=== PATIENT | male | born 1960 | race Caucasian/White ===

== ENCOUNTER 2017-05-25 00:35 | Emergency (ER) | payer OTHER ==
[~2017-05-25] VITALS: Ht 162.6 cm; Wt 95.3 kg
[~2017-05-25 00:35] MED LIST: ASPI-612 PO; ATOR10TA PO; Acetaminophen PO; CARV3.122 PO; Carisoprodol PO; HYDR-3326 PO; MAGN400O6 PO; PANT40TA2 PO; RXENO XX
--- NOTE | 2017-05-25 00:50 | NUR ---
PT WALKED INTO ER WITH ABSCESSES ON NECK AND BOTH UNDER ARMS.PT STATES NECK ABSCESS HAS AN ODOR... PT IS ALERT, ORIENTED X 3, NO RESP DISTRESS NOTED OR REPORTED UPON ASSESSMENT... MD AT BEDSIDE...
--- NOTE | 2017-05-25 01:10 | NUR ---
Patient discharged to home in stable conditon. Written and verbal after care instructions given. Patient verbalizes understanding of instructions. PT WALKED OUT OF ER UNASSISTED...
[2017-05-25 01:16] VITALS: BP 123/80
== END 2017-05-25 01:17 | disposition home or self-care (01) ==
LOC: ER 00:35
DX: L02.11 Cutaneous abscess of neck (principal); L02.412 Cutaneous abscess of left axilla; L02.411 Cutaneous abscess of right axilla; I10 Essential (primary) hypertension; F17.200 Nicotine dependence, unspecified, uncomplicated; I25.2 Old myocardial infarction; F20.9 Schizophrenia, unspecified; Z87.01 Personal history of pneumonia (recurrent); Z79.82 Long term (current) use of aspirin
CPT/HCPCS: A4663

== ENCOUNTER 2017-07-29 07:06 | Emergency (ER) | payer OTHER ==
[~2017-07-29] VITALS: Ht 162.6 cm; Wt 102.1 kg
--- NOTE | 2017-07-29 07:56 | NUR ---
Pt evaluated by MD in room 4A for c/o "something in my throat feels swollen", reports having coffee at [employer] and having a new sweetner "I think I have an allergic reaction". Pt presents with belching, bending forward makes pt breath easier, while talking has to take a break due to gagging. On inspection noted swelling of uvula in the back of pt's throat.
--- NOTE | 2017-07-29 08:14 | NUR ---
Pt receiving breathing treatment at this time.
--- NOTE | 2017-07-29 08:19 | NUR ---
Pt reports feeling better after the treatment, feels some soreness in this throat.
--- NOTE | 2017-07-29 10:52 | NUR ---
Patient discharged home in stable conditon. Written and verbal after care instructions given. Patient verbalizes understanding of instructions.
[2017-07-29 10:53] VITALS: BP 153/93
== END 2017-07-29 10:54 | disposition home or self-care (01) ==
LOC: ER 07:06
DX: K12.2 Cellulitis and abscess of mouth (principal); I10 Essential (primary) hypertension; F20.9 Schizophrenia, unspecified; E78.5 Hyperlipidemia, unspecified; J44.9 Chronic obstructive pulmonary disease, unspecified; G89.29 Other chronic pain; M54.5 Low back pain; Z79.82 Long term (current) use of aspirin; F17.210 Nicotine dependence, cigarettes, uncomplicated; I25.10 Atherosclerotic heart disease of native coronary artery without angina pectoris
CPT/HCPCS: 70360; 93005; 94640; 96374; 96375; 99284; A4663; J1200; J2930; J3490

== ENCOUNTER 2018-04-28 12:50 | Emergency (ER) | payer OTHER ==
[~2018-04-28] VITALS: Ht 162.6 cm; Wt 100.7 kg
--- NOTE | 2018-04-28 13:35 | NUR ---
MSE DONE BY DR BURGER ROOM 02A.
[2018-04-28] MEDS ORDERED: OXYCODONE/APAP 5-325 MG TABLET PO ONE (13:43)
[2018-04-28] MEDS ORDERED: OXYCODONE/APAP 5-325 MG TABLET ONE (13:50)
--- NOTE | 2018-04-28 13:58 | NUR ---
Patient discharged to home in stable conditon. Written and verbal after care instructions given. Patient verbalizes understanding of instructions.
[2018-04-28 13:59] VITALS: BP 137/68
== END 2018-04-28 14:01 | disposition home or self-care (01) ==
LOC: ER 12:50
DX: G89.29 Other chronic pain (principal); I10 Essential (primary) hypertension; M54.9 Dorsalgia, unspecified; M25.519 Pain in unspecified shoulder; Z79.891 Long term (current) use of opiate analgesic; Z79.899 Other long term (current) drug therapy; Z79.82 Long term (current) use of aspirin
CPT/HCPCS: 99283; A4663

== ENCOUNTER 2019-12-23 10:29 | Emergency (ER) | payer MEDICAID, OTHER ==
[~2019-12-23] VITALS: Ht 165.1 cm; Wt 85.7 kg
[2019-12-23 10:59] VITALS: BP 129/81
--- NOTE | 2019-12-23 10:59 | NUR ---
Patient discharged to home in stable conditon. Written and verbal after care instructions given. Patient verbalizes understanding of instructions. Patient ambulated with stable gait.
== END 2019-12-23 11:00 | disposition home or self-care (01) ==
LOC: ER 10:29
DX: M25.511 Pain in right shoulder (principal); I10 Essential (primary) hypertension; I25.2 Old myocardial infarction; F17.200 Nicotine dependence, unspecified, uncomplicated; Z76.0 Encounter for issue of repeat prescription; Z79.899 Other long term (current) drug therapy; Z79.82 Long term (current) use of aspirin
CPT/HCPCS: A4663

== ENCOUNTER 2020-01-10 09:21 | Emergency (ER) | payer MEDICAID ==
[~2020-01-10] VITALS: Ht 162.6 cm; Wt 85.7 kg
--- NOTE | 2020-01-10 09:55 | NUR ---
PATIENT WAS SEEN BY . DC AND F/U INSTRUCTIONS GIVEN AND EXPLAINED TO PATIENT WHO STATES HE UNDERSTANDS ALL INSTRUCTIONS.
== END 2020-01-10 09:57 | disposition home or self-care (01) ==
LOC: ER 09:21
DX: Z76.0 Encounter for issue of repeat prescription (principal); G43.909 Migraine, unspecified, not intractable, without status migrainosus; F17.200 Nicotine dependence, unspecified, uncomplicated; Z79.899 Other long term (current) drug therapy; Z79.82 Long term (current) use of aspirin; Z60.2 Problems related to living alone
CPT/HCPCS: A4663

== ENCOUNTER 2020-08-01 05:24 | Emergency (ER) | payer BC, MEDICAID, OTHER ==
[~2020-08-01] VITALS: Ht 162.6 cm; Wt 83.9 kg
[2020-08-01] MEDS ORDERED: METH-33 PO (05:59)
[2020-08-01] MEDS ORDERED: GABA-534 PO (05:59)
--- NOTE | 2020-08-01 06:34 | NUR ---
Patient discharged to home in stable condition. Written and verbal after care instructions given. Patient verbalizes understanding of instructions. Stressed follow up or return to ER for worsening s/s.
[2020-08-01 06:35] VITALS: BP 158/105
== END 2020-08-01 06:42 | disposition home or self-care (01) ==
LOC: ER 05:28
DX: S60.221A Contusion of right hand, initial encounter (principal); V43.52XA Car driver injured in collision with other type car in traffic accident, initial encounter; Y92.89 Other specified places as the place of occurrence of the external cause; M25.511 Pain in right shoulder; F17.200 Nicotine dependence, unspecified, uncomplicated; Z79.899 Other long term (current) drug therapy; F20.9 Schizophrenia, unspecified
CPT/HCPCS: 72100; 73030; 73130; A4663

== ENCOUNTER 2021-08-21 08:20 | Emergency (ER) | payer OTHER ==
[~2021-08-21] VITALS: Ht 162.6 cm; Wt 90.7 kg
[~2021-08-21 08:20] MED LIST changes: -ASPI-612 PO; -ATOR10TA PO; -Acetaminophen PO; -CARV3.122 PO; -Carisoprodol PO; +GABA-534 PO; -HYDR-3326 PO; -MAGN400O6 PO; +METH-33 PO; -PANT40TA2 PO; -RXENO XX
--- NOTE | 2021-08-21 08:30 | NUR ---
at bedside for MSE. Pt states he has not taken any of his regular prescribed medications for aobut four months because he ran out.
[2021-08-21] MEDS: ASPIRIN 81 MG TAB.CHEW PO ONE (08:35)
--- NOTE | 2021-08-21 08:35 | NUR ---
Patient is AOx4, denies chest pains@the moment. Patient said his chest pains usually come with exertion, his skin is warm & dry. Patient is expressing desire to leave the hospital and not be admitted. MD is aware.
[2021-08-21] MEDS ORDERED: ASPIRIN 81 MG TAB.CHEW ONE (08:40)
[2021-08-21 08:48] LABS: HEMATOCRIT 40.2 % (36.7-47.1); MEAN CORPUSCULAR HEMOGLOBIN 30.4 uug (23.8-33.4); MEAN CORPUSCULAR VOLUME 88.2 fL (73.0-96.2); PLATELET COUNT (AUTO) 236 K/uL (152-348)
[2021-08-21 08:55] LABS: CREATININE 0.7 mg/dL (0.6-1.3); POTASSIUM 3.5 mmol/L (3.5-5.1)
[2021-08-21 09:01] LABS: BILIRUBIN,DIRECT 0.2 mg/dL (0.0-0.2); BILIRUBIN,TOTAL 0.6 mg/dL (0.2-1.0); TOTAL PROTEIN, SERUM 7.8 g/dL (6.4-8.2)
[2021-08-21] MEDS ORDERED: ARIP10TA9 PO (09:23)
[2021-08-21] MEDS ORDERED: OLAN10TA3 PO (09:23)
[2021-08-21] MEDS ORDERED: ASPI81TA31 PO (09:23)
--- NOTE | 2021-08-21 09:31 | NUR ---
Patient did not wish to proceed with medical care recommended by Dr. Galindo. Patient was given information related to possible complications, up to and including , which could occur as a result of leaving the hospital at this time. Patient verbalized understanding of risks involved due to leaving against medical advice. Patient signed the AMA form. Copies of all the tests' results were given as well.
== END 2021-08-21 09:31 | disposition left against medical advice (07) ==
LOC: ER 08:20
DX: I21.4 Non-ST elevation (NSTEMI) myocardial infarction (principal); Z53.29 Procedure and treatment not carried out because of patient's decision for other reasons; Z91.14 Patient's other noncompliance with medication regimen; I25.2 Old myocardial infarction; F17.210 Nicotine dependence, cigarettes, uncomplicated; I11.9 Hypertensive heart disease without heart failure; F20.9 Schizophrenia, unspecified; Z95.5 Presence of coronary angioplasty implant and graft
CPT/HCPCS: 36415; 70030-TC; 71045; 85025; 93005; A4663

== ENCOUNTER 2021-10-04 07:15 | Inpatient (IN) | payer OTHER ==
[~2021-10-04] VITALS: Ht 162.6 cm; Wt 87.1 kg
[~2021-10-04 07:15] MED LIST changes: +ARIP10TA9 PO; +ASPI81TA31 PO; -GABA-534 PO; -METH-33 PO; +OLAN10TA3 PO
[2021-10-04] MEDS ORDERED: CARI350T PO (07:43)
--- NOTE | 2021-10-04 07:50 | NUR ---
PT GAVE THE NAME OF THE MEDS THAT HE ETAKES. PT ALSO MENTIONED THAT WAS TOLD THAT HE NEEDS TO BE ON ELIQUIS, BUT IT IS STILL NOT ARRANGED FOR HIM TO GET IT.
[2021-10-04 07:51] LABS: *BILIRUBIN,URIN NEGATIVE (NEGATIVE); *BLOOD, URINE NEGATIVE (NEGATIVE); *CLARITY,URINE CLEAR (CLEAR); *COLOR,URINE LIGHT YELLOW (YELLOW); *KETONES,URINE NEGATIVE (NEGATIVE); *UROBILINOGEN,URINE 0.2 E.U./dl (NORMAL); LEUKOCYTE ESTERASE ,URINE NEGATIVE (NEGATIVE); NITRITE, URINE NEGATIVE (NEGATIVE); UGLUCOSE NEGATIVE (NEGATIVE)
[2021-10-04 08:00] LABS: HEMATOCRIT 28.5 % (36.7-47.1); MEAN CORPUSCULAR HEMOGLOBIN 28.7 uug (23.8-33.4); MEAN CORPUSCULAR VOLUME 87.4 fL (73.0-96.2); PLATELET COUNT (AUTO) 528 K/uL (152-348)
--- NOTE | 2021-10-04 08:00 | NUR ---
pt wake and alert respiration spont c/o swallen on both lege hx open heart surger 22 day ago incision clean and dry and normal healing prosscess
[2021-10-04 08:14] LABS: BILIRUBIN,DIRECT 0.1 mg/dL (0.0-0.2); BILIRUBIN,TOTAL 0.4 mg/dL (0.2-1.0); CREATININE 0.7 mg/dL (0.6-1.3); POTASSIUM 3.6 mmol/L (3.5-5.1); TOTAL PROTEIN, SERUM 8.5 g/dL (6.4-8.2)
[2021-10-04] MEDS ORDERED: CEFTRIAXONE 1 G in IV DEXTROSE 5% 50 ML IV ONE (08:30)
[2021-10-04] MEDS ORDERED: HYDROCODONE/APAP 10-325 MG TABLET PO ONE ×2 (08:30→15:00)
[2021-10-04] MEDS ORDERED: ASPIRIN 81 MG TAB.CHEW PO ONE (08:30)
--- NOTE | 2021-10-04 09:00 | NUR ---
blood culure done 2nd site drow blood drow by lab tach
[2021-10-04] MEDS: AZITHROMYCIN IV 500 MG in IV DEXTROSE 5% 250 ML IV ONE ×2 (09:16→09:43)
[2021-10-04] MEDS ORDERED: ASPIRIN 81 MG TAB.CHEW ONE (09:20)
[2021-10-04] MEDS ORDERED: CEFTRIAXONE /D5W 50ML IVPB **ER PYXIS IV ONE (09:20)
[2021-10-04] MEDS ORDERED: HYDROCODONE/APAP 10-325 MG TABLET ONE ×2 (09:20→15:26)
[2021-10-04] MEDS ORDERED: AZITHROMYCIN 500MG/ D5W 250ML IVPB **ER PYXIS ONLY IV ONE (09:49)
[2021-10-04] MEDS ORDERED: SWABABLE VALVE TRANSFER SET EA MC ONE (10:28)
[2021-10-04] MEDS ORDERED: IOHEXOL 300MG/ML 100 ML INFUS..BTL ONE (10:28)
[2021-10-04] MEDS ORDERED: IV NORMAL SALINE 250 ML IV ONE (10:28)
--- NOTE | 2021-10-04 10:30 | NUR ---
To ct scan of chest with iv contrast pt fully understood consent sign tolorated procedure
[2021-10-04] MEDS ORDERED: KETOROLAC TROMETHAMINE 30 MG INJ ONE (11:01)
--- NOTE | 2021-10-04 11:22 | NUR ---
RESTING AND asleepy no sob noted at this time
--- NOTE | 2021-10-04 12:46 | NUR ---
WATING for to be admit inpt lunch obtend eat will 100% tolorted will no n/v noted resting and comfortable at this time
--- NOTE | 2021-10-04 14:00 | NUR ---
VS STABLE NO SOB TX GIVEN ORDER plan to admit her in pt
[2021-10-04] MEDS ORDERED: IPRATROPIUM BROMIDE 0.5 MG/2.5 ML NEBU NEB ONE (15:15)
[2021-10-04] MEDS ORDERED: ALBUTEROL SULFATE 2.5 MG/3 ML NEBU NEB ONE (15:15)
[2021-10-04] MEDS ORDERED: IPRATROPIUM BROMIDE 0.5 MG/2.5 ML NEBU ONE (15:58)
[2021-10-04] MEDS ORDERED: ALBUTEROL SULFATE 2.5 MG/3 ML NEBU ONE (15:58)
--- NOTE | 2021-10-04 16:00 | NUR ---
wating for room vs stable no vickers no fever
[2021-10-04] MEDS ORDERED: IPRATROPIUM BROMIDE 0.5 MG/2.5 ML NEBU NEB PRN (16:30)
[2021-10-04] MEDS ORDERED: MAGNESIUM HYDROXIDE 30 ML LIQUID UDC PO PRN (16:30)
[2021-10-04] MEDS ORDERED: ZOLPIDEM 5 MG TABLET PO PRN (16:30)
[2021-10-04] MEDS ORDERED: ACETAMINOPHEN 325 MG TABLET PO PRN (16:30)
[2021-10-04] MEDS ORDERED: ALBUTEROL SULFATE 2.5 MG/3 ML NEBU NEB PRN (16:30)
[2021-10-04] MEDS ORDERED: Z GUARD REMEDY PASTE 57 GM TUBE TOP PRN (16:30)
[2021-10-04] MEDS ORDERED: methylPREDNISolone SOD SUCC 125 MG/2 ML VIAL IV ONE (16:57)
[2021-10-04] MEDS ORDERED: levoFLOXacin 750 MG TABLET PO SCH (16:58)
[2021-10-04] MEDS: ARIPIPRAZOLE 10 MG TABLET PO SCH (17:15)
[2021-10-04] MEDS ORDERED: methylPREDNISolone SOD SUCC 125 MG/2 ML VIAL ONE (17:25)
[2021-10-04] MEDS ORDERED: levoFLOXacin 750MG/D5W 150 ML IV ONE (17:26)
--- NOTE | 2021-10-04 18:00 | NUR ---
Dinner obtanded eat will no n/v resting and comfortable at this time
--- NOTE | 2021-10-04 19:30 | NUR ---
hand off to Andreas pt no sob no chest pain
[2021-10-04] MEDS ORDERED: ENOXAPARIN SODIUM 40 MG/0.4 ML DISP.SYRIN SQ SCH (21:00)
--- NOTE | 2021-10-04 21:17 | NUR ---
Report given to [facility] Tele.
[2021-10-04] MEDS: HYDROCODONE/APAP 5-325MG TABLET PO PRN (22:21)
--- NOTE | 2021-10-04 22:35 | NUR ---
Admitted to room 327; admission procedures done; educated with incentive spirometer; needs attended;
[2021-10-05 00:20] VITALS: BP 146/87
[2021-10-05 04:50] VITALS: BP 160/91
[2021-10-05 06:13] LABS: HEMATOCRIT 27.9 % (36.7-47.1); MEAN CORPUSCULAR HEMOGLOBIN 27.9 uug (23.8-33.4); MEAN CORPUSCULAR VOLUME 86.1 fL (73.0-96.2); PLATELET COUNT (AUTO) 479 K/uL (152-348)
[2021-10-05 06:20] LABS: CREATININE 0.8 mg/dL (0.6-1.3); MAGNESIUM 1.9 mg/dL (1.8-2.4); PHOSPHOROUS 3.6 mg/dL (2.5-4.9)
--- NOTE | 2021-10-05 06:46 | NUR ---
END OF SHIFT REPORT Patient rested well in between care; safety maintained; hourly rounding done; continue to monitor; continue plan of care. pplaced on
[2021-10-05 08:00] VITALS: BP 157/96
[2021-10-05] MEDS ORDERED: predniSONE 20 MG TABLET PO SCH (08:00)
[2021-10-05] MEDS: ARIPIPRAZOLE 10 MG TABLET PO SCH (08:58)
[2021-10-05] MEDS ORDERED: ARIPIPRAZOLE 10 MG TABLET PO SCH (09:00)
[2021-10-05] MEDS ORDERED: ASPIRIN 81 MG TAB.CHEW PO SCH (09:00)
[2021-10-05] MEDS: HYDROCODONE/APAP 5-325MG TABLET PO PRN (09:04)
[2021-10-05 11:22] VITALS: BP 158/94
[2021-10-05] MEDS ORDERED: HYDR-3972 PO (14:47)
[2021-10-05] MEDS ORDERED: ALBU6.7H9 INH (14:47)
[2021-10-05] MEDS ORDERED: LEVO750T46 PO (14:47)
[2021-10-05] MEDS ORDERED: PRED20TA PO (14:47)
[2021-10-05 15:39] VITALS: BP 148/95
--- NOTE | 2021-10-05 16:30 | NUR ---
All needs were attended and all due meds given as ordered. Safety measures maintained at all times. Patient is stable during discharged.
--- NOTE | 2021-10-05 16:30 | NUR ---
discharged patient on a private car. no distress identified. he is ambulatory. denies pain during the shift. Skin is intact, surgery site to the chest intact, no bleeding and no pain identified. breathing treatment was given prior to dc by the RT, tolerated well. belonging list signed and with the patient. dc instructions given, noted with understanding.
== END 2021-10-05 16:30 | disposition home or self-care (01) | DRG 141 ==
LOC: ER 07:15 → TRANSITION 15:27 → TELE3 21:22
PROVIDERS: ADMIT Nurse Practitioner Family; ATTEND Nurse Practitioner Family
DX: J45.909 Unspecified asthma, uncomplicated (principal); I31.3 Pericardial effusion (noninflammatory); J06.9 Acute upper respiratory infection, unspecified; D64.9 Anemia, unspecified; J98.11 Atelectasis; D75.839 Thrombocytosis, unspecified; F20.9 Schizophrenia, unspecified; I25.2 Old myocardial infarction; Z95.1 Presence of aortocoronary bypass graft; R60.0 Localized edema; G43.909 Migraine, unspecified, not intractable, without status migrainosus; Z79.899 Other long term (current) drug therapy; Z79.82 Long term (current) use of aspirin; Z59.02 Unsheltered homelessness; R79.1 Abnormal coagulation profile; G89.29 Other chronic pain; M54.9 Dorsalgia, unspecified; M54.2 Cervicalgia; R73.9 Hyperglycemia, unspecified; I70.0 Atherosclerosis of aorta; Z82.49 Family history of ischemic heart disease and other diseases of the circulatory system; Z20.822 Contact with and (suspected) exposure to COVID-19; I25.10 Atherosclerotic heart disease of native coronary artery without angina pectoris
CPT/HCPCS: 36415; 70030-TC; 71045; 71275; 83550; 83735; 84100; 84443; 85025; 85730; 87040; 87086; 93005; 94640; A4663; G0378; J0456; J0696; J1650; J1885; J1956; J2930; J3590; J7050; J7512; Q9967